=== PATIENT | female | born 1960 | race Caucasian/White ===

== ENCOUNTER 2024-06-18 18:00 | Emergency (ER) | payer MEDICARE, OTHER, SELFPAY ==
[2024-06-18 18:01] VITALS: BP 89/53
[2024-06-18 18:48] VITALS: BP 110/75
[2024-06-18 18:49] VITALS: BMI 18.7
--- NOTE | 2024-06-18 18:58 | ED.GENMED ---
History of Present Illness
General
Chief Complaint: Abdominal Pain
Source: patient
Exam Limitations: none
Time Seen by Provider: 06/18/24 18:39
Nursing documentation reviewed up to this point in time: agreed with
History of Present Illness
History of Present Illness:
63-year-old female presents emerged part due to lower abdominal pain and multiple episodes of vomiting. This began at 5 PM. This was after having eaten what patient states to be a lot of food at a buffet. She feels better now, and just has some
soreness.
Past History
Past History
ED Past Medical History: Arrthythmia and HTN
ED Past Surgical History: and Other (Breast lumpectomy)
Social History
Tobacco: Non-smoker
Alcohol: None
Drug: None
Personal:
Living: with family
Review of Systems
Review of Systems
Allergies reviewed?: Yes
All Other Systems: Not applicable
Constitutional: Reports no symptoms
EENT: Reports no symptoms
Respiratory: Reports no symptoms
Cardiac: Reports no symptoms
ABD/GI: Reports abdominal pain, nausea and vomiting
: Reports no symptoms
Musculoskeletal: Reports no symptoms
Skin: Reports no symptoms
Neurological: Reports no symptoms
Endocrine: Reports no symptoms
Hematologic/Lymphatic: Reports no symptoms
Psychiatric: Reports no symptoms
Phy Exam
Physical Exam
Physical Exam:
Physical Exam
General: no apparent distress, not acutely ill
Neck: supple. no meningeal signs. normal posterior pharynx
Heart: s1/s2 regular rate and rhythm, no murmur. equal radial
pulses.
HEENT: Pupils equal round reactive to light, EOMI
Lungs: no acute respiratory distress. clear bilaterally
Abdomen: normal bowel sounds. not tender. no CVAT
Neuro: alert and oriented. no focal neurological deficits cranial nerves II through XII intact
Skin: no rash
Psychiatric: well kept. interactive and cooperative
Extremities: no edema. no calf tenderness. negative homans. good distal pulses
Course
Vital Signs
Initial and Last Documented VS:
Initial Vital Signs
Temp Pulse Resp BP Pulse Ox
97.7 F 46 16 89/53 100
06/18/24 18:01 06/18/24 18:01 06/18/24 18:01 06/18/24 18:01 06/18/24 18:01
Last Documented Vital Signs
Temp Pulse Resp BP Pulse Ox
97.7 F 46 16 112/80 100
06/18/24 18:01 06/18/24 18:01 06/18/24 18:01 06/18/24 19:00 06/18/24 19:32
MDM/Problems Addressed
Differential Diagnosis Includes:
Appendicitis, gastroenteritis, cholecystitis
MDM/Problems Addressed:
63-year-old female with nausea vomiting, symptoms improved with observation. Stable for discharge. Abdomen exam benign. Do not suspect appendicitis or cholecystitis.
*Pulse Oximetry
Patient hypoxic: no
*Critical Care Note
Total Time (30-74mins, 75-104mins- exclusive of procedures): Not Applicable
Patient Management
Social determinants of health affecting care: Living situation
Escalation/DeEscalation of care consider admission/obs:
admit not indicated
ED Attending Note
-
Portions of this chart may have been created with voice recognition software.� Occasional wrong word or��sound alike� substitutions may have occurred due to the inherent limitations of voice recognition software.
Discharge Plan
Departure
Patient Disposition: Home (Routine Discharge)
Date of Disposition: 06/18/24
Time of Disposition: 19:23
Patient with high blood pressure during this ER visit?: No
Condition: Good
Discharge Problem:
Nausea and vomiting
Instructions: Nausea and Vomiting, Adult (DC), Abdominal Pain
Prescriptions:
New
ondansetron 4 mg tablet,disintegrating
4 mg PO Q8H PRN (Reason: nausea and vomiting) 4 Days Qty: 7 0RF
Interventions
Interventions:
*Risk Screen - Suicide Last Done: 06/18/24 18:49
*General Assessment Last Done: 06/18/24 18:49
*Neglect/Abuse Screening Last Done: 06/18/24 18:49
*ED- Fall Risk Assessment Last Done: 06/18/24 18:49
*ED COVID-19 Vaccine History Last Done: 06/18/24 18:49
*Nursing Disposition Last Done: 06/18/24 19:46
OC-Viqlji-Dtwqqbecon Assessment Last Done: 06/18/24 18:49
Discharge Date and Time
Discharge Date/Time: 06/18/24 19:48
Print Language: [id number]
[2024-06-18 19:00] VITALS: BP 112/80
== END 2024-06-18 19:48 | disposition home or self-care (01) ==
LOC: EMR 18:00
PROVIDERS: EMERGENCY PHYSICIAN Emergency Medicine; FAMILY PHYSICIAN Internal Medicine
DX: R11.2 Nausea with vomiting, unspecified (principal); R10.30 Lower abdominal pain, unspecified; I10 Essential (primary) hypertension
CPT/HCPCS: 99283

== ENCOUNTER → 2024-06-22 11:13 | Outpatient (REF) | payer MEDICARE, OTHER, SELFPAY | LOC: HWRCS 11:13 | PROVIDERS: ATTENDING PHYSICIAN Internal Medicine Cardiovascular Disease; FAMILY PHYSICIAN Internal Medicine | DX: R00.2 Palpitations (principal); I49.3 Ventricular premature depolarization; I47.10 Supraventricular tachycardia, unspecified; I10 Essential (primary) hypertension | CPT/HCPCS: 93306 ==

== ENCOUNTER → 2024-07-10 10:37 | Outpatient (REF) | payer MEDICARE, OTHER, SELFPAY ==
[2024-07-10 11:43] LABS: % Basophils 1.5 % (0-2); % Immature Granulocytes 0.2 % (0-0.5); % Lymphocytes 25.4 % (20.5-51.1); % Neutrophils 64.9 % (42.2-75.2); Absolute Basophils 0.1 10^3/uL (0-0.2); Absolute Eosinophils 0.1 10^3/uL (0-0.7); Absolute Lymphocytes 1.6 10^3/uL (1.2-3.4); Absolute Monocytes 0.4 10^3/uL (0.1-0.6); Hematocrit 38.2 % (37.0-47.0); Hemoglobin 13.1 g/dL (12.0-16.0); Mean Corp Hgb Conc. 34.3 g/dL (33.0-37.0); Mean Corpuscular Hgb 32.8 pg (27.0-31.0); Mean Corpuscular Volume 95.7 fL (81.0-99.0); Mean Platelet Volume 9.6 fL (7.4-10.4); Nucleated Red Blood Cells % 0 %; Platelet Count 377 10^3/uL (130-400); Red Blood Cell Count 3.99 10^6/uL (4.20-5.40); Red Cell Dist. Width 12.2 % (11.5-14.5); White Blood Cell Count 6.1 10^3/uL (4.8-10.8)
== END ==
LOC: REG 10:37
PROVIDERS: ATTENDING PHYSICIAN Specialist; FAMILY PHYSICIAN Internal Medicine
DX: Z01.812 Encounter for preprocedural laboratory examination (principal)
CPT/HCPCS: 36415; 85025

== ENCOUNTER → 2024-11-30 12:41 | Outpatient (REF) | payer MEDICARE, OTHER, SELFPAY | LOC: HWEVLT 12:41 | PROVIDERS: ATTENDING PHYSICIAN Radiology Diagnostic Radiology | DX: I83.891 Varicose veins of right lower extremity with other complications (principal) | CPT/HCPCS: 93970 ==